=== PATIENT | male | born 1980 | race Caucasian/White ===

== ENCOUNTER 2019-08-06 10:33 | Emergency (ER) | payer OTHER ==
[~2019-08-06] VITALS: Ht 177.8 cm; Wt 68.2 kg
[2019-08-06 10:59] LABS: EOSINOPHILS % (AUTO) 1 % (0-10); HEMATOCRIT 41 % (40-54); HEMOGLOBIN 14.7 G/DL (13.3-17.7); LYMPHOCYTES % (AUTO) 30 % (12-44); MEAN CORPUSCULAR HEMOGLOBIN 31 PG (25-34); MEAN CORPUSCULAR HGB CONC 36 G/DL (32-36); MEAN CORPUSCULAR VOLUME 85 FL (80-99); MEAN PLATELET VOLUME 10.2 FL (7.4-10.4); MONOCYTES % (AUTO) 12 % (0-12); NEUTROPHILS % (AUTO) 56 % (42-75); PLATELET COUNT 250 10^3/uL (130-400); RED CELL DISTRIBUTION WIDTH 12.5 % (10.0-14.5); WHITE BLOOD COUNT 7.5 10^3/uL (4.3-11.0)
[2019-08-06 11:00] LABS: BASOPHILS % (AUTO) 1 % (0-10); EOSINOPHILS # (AUTO) 0.1 10^3/uL (0.0-0.3); LYMPHOCYTES # (AUTO) 2.2 X 10^3 (1.0-4.0); MONOCYTES # (AUTO) 0.9 X 10^3 (0.0-1.0); NEUTROPHILS # (AUTO) 4.2 X 10^3 (1.8-7.8)
[2019-08-06 11:05] LABS: CLARITY,URINE CLEAR; COLOR,URINE PALE YELLOW
[2019-08-06 11:06] LABS: BACTERIA,URINE NEGATIVE /HPF; BILIRUBIN,URINE NEGATIVE (NEGATIVE); GLUCOSE, URINE (UA) NEGATIVE (NEGATIVE); KETONES,URINE NEGATIVE (NEGATIVE); LEUKOCYTE ESTERASE ,URINE NEGATIVE (NEGATIVE); NITRITE,URINE NEGATIVE (NEGATIVE); PROTEIN,URINE NEGATIVE (NEGATIVE); SQUAMOUS EPITHELIAL CELL,UR RARE /HPF
[2019-08-06] MEDS: NS IV 1000 ML 1,000 ML IV SCH ×2 (11:18→11:40)
[2019-08-06 11:33] LABS: POTASSIUM 3.4 MMOL/L (3.6-5.0); SODIUM 141 MMOL/L (135-145)
[2019-08-06 11:34] LABS: ALANINE AMINOTRANSFERASE < 5 U/L (0-55); ALKALINE PHOSPHATASE 73 U/L (40-136); BILIRUBIN,TOTAL 0.6 MG/DL (0.1-1.0); BUN/CREATININE RATIO 11; CALCIUM 9.9 MG/DL (8.5-10.1); CARBON DIOXIDE 23 MMOL/L (21-32); CHLORIDE 105 MMOL/L (98-107); CREATININE SERUM 0.99 MG/DL (0.60-1.30); GFR ESTIMATED > 60; GLUCOSE 146 MG/DL (70-105); TOTAL PROTEIN 7.5 GM/DL (6.4-8.2)
[2019-08-06 12:12] VITALS: BP 137/65
--- NOTE | 2019-08-06 12:16 | ED General ---
General Chief Complaint: General Problems/Pain Stated Complaint: RT ARM NUMBNESS; DIZZINESS Nursing Triage Note: Patient presents to the ED with c/o of dizziness and right arm numbness. He stated that this morning when he got up he became dizzy. He reports intermittent dizziness for the last couple of months. He states that while he was driving to town his right arm became numb. Nursing Sepsis Screen: No Definite Risk Source of Information: Patient Exam Limitations: No Limitations History of Present Illness Date Seen by Provider: Aug 06, 2019 Time Seen by Provider: 10:45 Initial Comments Patient is a 38-year-old male with a self-reported history of anxiety presents with dizziness lightheadedness, body aches and tingling in right arm. Patient reports intermittent dizziness over the past several days with occasional loss of concentration and fatigue. 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 No history of diabetes, hypertension, dyslipidemia coronary disease Denies chest pain shortness of breath, tea colored urine. No fever chills or sweats. Denies syncope or seizure episodes. Patient takes occasional ibuprofen for body aches and drinks alcohol once or twice monthly. Denies family history of coronary disease. Patient states physically active at work and lifts weights prior to work daily. . Timing/Duration: 4-5 Days Severity: Mild Associated Systoms: Denies Symptoms Allergies and Home Medications Allergies Coded Allergies: Penicillins (Verified Allergy, Unknown, 08/06/19) bee venom protein (honey bee) (Verified Allergy, Unknown, 08/06/19) Patient Home Medication List Home Medication List Reviewed: Yes Review of Systems Review of Systems Constitutional: see HPI EENTM: see HPI Respiratory: see HPI Cardiovascular: see HPI Gastrointestinal: see HPI Genitourinary: see HPI Musculoskeletal: see HPI Skin: see HPI Psychiatric/Neurological: Anxiety Past Ndbcevd-Jieelr-Bhfytd Hx Past Med/Social Hx: Reviewed Nursing Past Med/Soc Hx Patient Social History Alcohol Use: Occasionally Uses Recreational Drug Use: Yes Drug of Choice: Marijuana Smoking Status: Former Smoker Type Used: Cigarettes Former Smoker, Quit: Mar 02, 2016 2nd Hand Smoke Exposure: No Recent Foreign Travel: No Contact w/Someone Who Travel: No Recent Infectious Disease Expo: No Recent Hopitalizations: No Physical Abuse: No Sexual Abuse: No Mistreated: No Fear: No Seasonal Allergies Seasonal Allergies: No Past Medical History Surgeries: No Respiratory: No Cardiac: No Neurological: No Genitourinary: No Gastrointestinal: No Musculoskeletal: No Endocrine: No HEENT: No Cancer: No Psychosocial: No Integumentary: No Blood Disorders: No Physical Exam Vital Signs Vital Signs - First Documented 08/06/19 10:35 Temp 36.6 Pulse 90 Resp 16 B/P (MAP) 142/79 (100) Pulse Ox 98 O2 Delivery Room Air Capillary Refill : Less Than 3 Seconds Height, Weight, BMI Height: '" Weight: lbs. oz. kg; 21.00 BMI Method: General Appearance: Anxious Eyes: Bilateral Eye Normal Inspection, Bilateral Eye PERRL, Bilateral Eye EOMI HEENT: Normal ENT Inspection, Pharynx Normal Neck: Full Range of Motion, Normal Inspection, Supple Respiratory: Chest Non Tender, Lungs Clear Cardiovascular: Regular Rate, Rhythm Gastrointestinal: Non Tender, Soft Back: Normal Inspection Extremity: Normal Capillary Refill, Normal Inspection Neurologic/Psychiatric: Alert, Oriented x3, No Motor/Sensory Deficits, tool maker apprentice II- XII Norm as Tested Skin: Normal Color Focused Exam Sepsis Stage: Ruled Out Progress/Results/Core Measures Suspected Sepsis Recent Fever Within 48 Hours: No Infection Criteria Present: None New/Unexplained Altered Menta: No Sepsis Screen: No Definite Risk SIRS Temperature: Pulse: 90 Respiratory Rate: 16 Laboratory Tests 08/06/19 10:49: White Blood Count 7.5 Blood Pressure 142 /79 Mean: 100 Laboratory Tests 08/06/19 10:49: Creatinine 0.99, Platelet Count 250, Total Bilirubin 0.6 Results/Orders Lab Results Laboratory Tests Test 08/06/19 10:49 08/06/19 10:51 Range/Units White Blood Count 7.5 4.3-11.0 10^3/uL Red Blood Count 4.78 4.35-5.85 10^6/uL Hemoglobin 14.7 13.3-17.7 G/DL Hematocrit 41 40-54 % Mean Corpuscular Volume 85 80-99 FL Mean Corpuscular Hemoglobin 31 25-34 PG Mean Corpuscular Hemoglobin Concent 36 32-36 G/DL Red Cell Distribution Width 12.5 10.0-14.5 % Platelet Count 250 130-400 10^3/uL Mean Platelet Volume 10.2 7.4-10.4 FL Neutrophils (%) (Auto) 56 42-75 % Lymphocytes (%) (Auto) 30 12-44 % Monocytes (%) (Auto) 12 0-12 % Eosinophils (%) (Auto) 1 0-10 % Basophils (%) (Auto) 1 0-10 % Neutrophils # (Auto) 4.2 1.8-7.8 X 10^3 Lymphocytes # (Auto) 2.2 1.0-4.0 X 10^3 Monocytes # (Auto) 0.9 0.0-1.0 X 10^3 Eosinophils # (Auto) 0.1 0.0-0.3 10^3/uL Basophils # (Auto) 0.0 0.0-0.1 10^3/uL Sodium Level 141 135-145 MMOL/L Potassium Level 3.4 L 3.6-5.0 MMOL/L Chloride Level 105 98-107 MMOL/L Carbon Dioxide Level 23 21-32 MMOL/L Anion Gap 13 5-14 MMOL/L Blood Urea Nitrogen 11 7-18 MG/DL Creatinine 0.99 0.60-1.30 MG/DL Estimat Glomerular Filtration Rate > 60 BUN/Creatinine Ratio 11 Glucose Level 146 H 70-105 MG/DL Calcium Level 9.9 8.5-10.1 MG/DL Corrected Calcium 8.5-10.1 MG/DL Total Bilirubin 0.6 0.1-1.0 MG/DL Aspartate Amino Transf (AST/SGOT) 50 H 5-34 U/L Alanine Aminotransferase (ALT/SGPT) < 5 0-55 U/L Alkaline Phosphatase 73 40-136 U/L Troponin I < 0.30 <0.30 NG/ML Total Protein 7.5 6.4-8.2 GM/DL Albumin 5.0 H 3.2-4.5 GM/DL Urine Color PALE YELLOW Urine Clarity CLEAR Urine pH 7.0 5-9 Urine Specific Adrian <=1.005 1.016-1.022 Urine Protein NEGATIVE NEGATIVE Urine Glucose (UA) NEGATIVE NEGATIVE Urine Ketones NEGATIVE NEGATIVE Urine Nitrite NEGATIVE NEGATIVE Urine Bilirubin NEGATIVE NEGATIVE Urine Urobilinogen 0.2 < = 1.0 MG/DL Urine Leukocyte Esterase NEGATIVE NEGATIVE Urine RBC (Auto) NEGATIVE NEGATIVE Urine RBC NONE /HPF Urine WBC NONE /HPF Urine Squamous Epithelial Cells RARE /HPF Urine Crystals NONE /LPF Urine Bacteria NEGATIVE /HPF Urine Casts NONE /LPF Urine Mucus NEGATIVE /LPF Urine Culture Indicated NO My Orders Orders - MANINDER RODAS DO Cbc With Automated Diff (08/06/19 10:41) Comprehensive Metabolic Panel (08/06/19 10:41) Ekg Tracing (08/06/19 10:41) Ua Culture If Indicated (08/06/19 10:41) Creatine Kinase (08/06/19 10:41) Troponin I Fs (08/06/19 10:41) Ns Iv 1000 Ml (Sodium Chloride 0.9%) (08/06/19 11:15) Vital Signs/I&O 08/06/19 10:35 Temp 36.6 Pulse 90 Resp 16 B/P (MAP) 142/79 (100) Pulse Ox 98 O2 Delivery Room Air Capillary Refill : Less Than 3 Seconds Blood Pressure Mean: 100 Departure Communication (Admissions) EKG: Sinus rhythm, rate 86, right bundle branch block, no Q waves, acute segment elevations. Symptoms likely related to heat exhaustion and anxiety. Recommendations are supportive care, watchful waiting and PCP follow-up. Return precautions reviewed. Patient verbalizes understanding. Discharge instructions prior to departure Impression Primary Impression: Heat exhaustion Disposition: HOME, SELF-CARE Condition: Stable Departure-Patient Inst. Patient Instructions: Heat Exhaustion and Heat Stroke (DC) Add. Discharge Instructions: Please sta y indoorsin a cool air-conditioned environments next 2-3 days or until after symptoms resolve. Follow-up with your PCP in 3-5 days as needed. Return to the ED if new or worsening symptoms. All discharge instructions reviewed with patient and/or family. Voiced understanding. MANINDER RODAS DO Aug 06, 2019 12:16
[2019-08-06 16:09] LABS: CREATINE KINASE 203 U/L (30-200)
== END 2019-08-06 12:12 | disposition home or self-care (01) ==
LOC: ER FS 10:35
DX: T67.5XXA Heat exhaustion, unspecified, initial encounter (principal); Z88.0 Allergy status to penicillin; Z87.891 Personal history of nicotine dependence
CPT/HCPCS: 36415; 80053; 81000; 82550; 84484; 85025; 93005

== ENCOUNTER 2021-09-20 10:23 | Emergency (ER) | payer OTHER ==
[~2021-09-20] VITALS: Ht 177 cm; Wt 72.0 kg
[2021-09-20 10:48] VITALS: BP 133/72
--- NOTE | 2021-09-20 10:57 | ED Lower Extremity ---
General Chief Complaint: Laceration Stated Complaint: RT LEG LAC Nursing Triage Note: Patient has presented to ER with cc of a laceration on his lower right leg. Cut it on a peice of metal stake while woking on concrete. Source: patient Exam Limitations: no limitations History of Present Illness Date Seen by Provider: Sep 20, 2021 Time Seen by Provider: 10:34 Initial Comments 40-year-old male patient without history of medical problems complaining of laceration to his right leg. Patient states he was working with concrete and when he turned around a piece of metal cut him on medial side of right leg. Patient denies other injuries and focal neurodeficit. Patient is not up-to-date with tetanus immunization. Patient rated his pain as a mild pain Onset: just prior to arrival Allergies and Home Medications Allergies Coded Allergies: Penicillins (Verified Allergy, Unknown, 08/06/19) bee venom protein (honey bee) (Verified Allergy, Unknown, 08/06/19) Patient Home Medication List Home Medication List Reviewed: Yes Review of Systems Constitutional: no symptoms reported EENTM: no symptoms reported Respiratory: no symptoms reported Cardiovascular: no symptoms reported Gastrointestinal: no symptoms reported Genitourinary: no symptoms reported Musculoskeletal: see HPI Skin: see HPI Psychiatric/Neurological: No Symptoms Reported All Other Systems Reviewed Negative Unless Noted: Yes Past Koaflrw-Lviiia-Tuqssq Hx Patient Social History Tobacco Use?: No Use of E-Cig and/or Vaping dev: No Alcohol Use?: Yes Alcohol Frequency: Once in a while Seasonal Allergies Seasonal Allergies: No Past Medical History Surgeries: No Respiratory: No Cardiac: No Neurological: No Genitourinary: No Gastrointestinal: No Musculoskeletal: No Endocrine: No HEENT: No Cancer: No Psychosocial: No Integumentary: No Blood Disorders: No Physical Exam Vital Signs Vital Signs - First Documented 09/20/21 10:48 Temp 36.8 Pulse 97 Resp 18 B/P (MAP) 133/72 (92) Pulse Ox 97 O2 Delivery Room Air Capillary Refill : Height, Weight, BMI Height: '" Weight: lbs. oz. kg; 22.00 BMI Method: General Appearance: WD/WN, no apparent distress HEENT: PERRL/EOMI, normal ENT inspection Neck: non-tender, full range of motion, supple Cardiovascular: regular rate, rhythm, no edema, no gallop, no JVD, no murmur Respiratory: chest non-tender, lungs clear, normal breath sounds, no respiratory distress, no accessory muscle use Gastrointestinal: non tender, soft Back: normal inspection Hips: bilateral hip non-tender, bilateral hip normal inspection Legs: right leg other (5 cm linear oblique laceration of midshaft of right leg and medial side) Knees: bilateral knee non-tender, bilateral knee normal inspection Ankles: bilateral ankle non-tender, bilateral ankle normal inspection Feet: bilateral foot non-tender, bilateral foot normal inspection Neurologic/Tendon: normal sensation, normal motor functions Neurologic/Psychiatric: no motor/sensory deficits, alert Skin: normal color, warm/dry, other (Right leg laceration) Lymphatic: no adenopathy Procedures/Interventions Wound Location: Lower Extremities Other Wound Location Right anterior leg Wound Length (cm): 5 Wound's Depth, Shape: into muscle, linear Wound Explored: no foreign body removed Irrigated w/ Saline (ccs): 500 Betadine Prep?: No Anesthesia: 1% Lidocaine Volume Anesthetic (ccs): 6 Wound Debrided: None Suture: Prolene Suture Size: 4-0 Number of Sutures: 5 Sterile Dressing Applied?: Yes Progress/Results/Core Measures Results/Orders My Orders Orders - DA DURANT MD Dipht,Pertuss(Acell),Tet Adult (Boostrix (09/20/21 11:00) Medications Given in ED Current Medications Medications Dose Ordered Sig/Ketan Route Start Time Stop Time Status Last Admin Dose Admin Diphtheria/ Tetanus/Acell Pertussis 0.5 ml ONCE ONCE IM 09/20/21 11:00 09/20/21 11:01 DC 09/20/21 10:59 0.5 ML Vital Signs/I&O 09/20/21 10:48 Temp 36.8 Pulse 97 Resp 18 B/P (MAP) 133/72 (92) Pulse Ox 97 O2 Delivery Room Air Blood Pressure Mean: 92 Progress Progress Note : Progress Note Evaluation of patient in ER showed 40-year-old male patient with 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 Laceration was repaired with 5 sutures of 4-0 Prolene and dressing was applied. Patient had Tdap in ER. Patient advised for suture removal in 7 to 10 days and taking [id number] Tylenol or ibuprofen as needed for pain and keep the wound clean and dry. Departure Impression Primary Impression: Laceration of right lower leg Qualified Codes: S81.811A - Laceration without foreign body, right lower leg, initial encounter Disposition: HOME, SELF-CARE Condition: Improved Departure-Patient Inst. Decision time for Depature: 10:55 Referrals: NO,LOCAL PHYSICIAN (PCP/Family) Primary Care Physician Patient Instructions: Laceration Repair With Stitches ED, Wound Care ED Add. Discharge Instructions: Keep wound clean and dry Suture removal in 7 to 10 days May take Tylenol and ibuprofen as needed for pain All discharge instructions reviewed with patient and/or family. Voiced understa nding. DA DURANT MD Sep 20, 2021 10:57
[2021-09-20] MEDS ORDERED: TETANUS,DIPTH,PERTUSS P/F (BOOSTRIX) 0.5 ML VIAL IM ONE (11:00)
== END 2021-09-20 11:05 | disposition home or self-care (01) ==
LOC: EDUNIT# 10:23 → ER FS 10:24
DX: S81.811A Laceration without foreign body, right lower leg, initial encounter (principal); Z23 Encounter for immunization; Z28.310 Unvaccinated for COVID-19; W26.8XXA Contact with other sharp object(s), not elsewhere classified, initial encounter; Y92.59 Other trade areas as the place of occurrence of the external cause; Y99.0 Civilian activity done for income or pay
CPT/HCPCS: 12002; 90715